=== PATIENT | female | born 1940 | race Caucasian/White ===

== ENCOUNTER → 2024-06-15 18:24 | Outpatient (REF) | payer OTHER, SELFPAY | LOC: MRI 18:24 | PROVIDERS: ATTENDING PHYSICIAN Nurse Practitioner; FAMILY PHYSICIAN Internal Medicine | DX: K86.2 Cyst of pancreas (principal) | CPT/HCPCS: 74183 ==

== ENCOUNTER → 2024-06-24 06:45 | Day surgery (SDC) | payer OTHER, SELFPAY ==
[2024-06-24 10:59] LABS: Glucose - Point of Care 121 mg/dl (70-99)
== END ==
LOC: GI 06:45
PROVIDERS: ATTENDING PHYSICIAN Internal Medicine Gastroenterology
DX: K57.30 Diverticulosis of large intestine without perforation or abscess without bleeding (principal); K64.8 Other hemorrhoids; R19.4 Change in bowel habit
CPT/HCPCS: 45380; 88305; 82962

== ENCOUNTER → 2024-07-07 13:33 | Outpatient (REF) | payer OTHER, SELFPAY | LOC: HWRAD 13:33 | PROVIDERS: ATTENDING PHYSICIAN Orthopaedic Surgery; FAMILY PHYSICIAN Internal Medicine | DX: M48.061 Spinal stenosis, lumbar region without neurogenic claudication (principal); M51.36 Other intervertebral disc degeneration, lumbar region; M41.50 Other secondary scoliosis, site unspecified | CPT/HCPCS: 72131 ==

== ENCOUNTER → 2024-07-29 15:30 | Outpatient (REF) | payer OTHER, SELFPAY | LOC: PAVMRI 15:30 | PROVIDERS: ATTENDING PHYSICIAN Orthopaedic Surgery; FAMILY PHYSICIAN Internal Medicine | DX: M48.061 Spinal stenosis, lumbar region without neurogenic claudication (principal); M51.36 Other intervertebral disc degeneration, lumbar region; M41.50 Other secondary scoliosis, site unspecified | CPT/HCPCS: 72148 ==

== ENCOUNTER → 2024-10-06 20:30 | Outpatient (REF) | payer OTHER, SELFPAY | LOC: MRI 3T 20:30 | PROVIDERS: ATTENDING PHYSICIAN Neurological Surgery; FAMILY PHYSICIAN Internal Medicine | DX: M51.369 Other intervertebral disc degeneration, lumbar region without mention of lumbar back pain or lower extremity pain (principal); M41.50 Other secondary scoliosis, site unspecified | CPT/HCPCS: 72146 ==

== ENCOUNTER → 2025-01-24 14:04 | Outpatient (REF) | payer OTHER, SELFPAY | LOC: HWRCS 14:04 | PROVIDERS: ATTENDING PHYSICIAN Internal Medicine Cardiovascular Disease; FAMILY PHYSICIAN Internal Medicine | DX: R06.09 Other forms of dyspnea (principal) | CPT/HCPCS: 93306 ==

== ENCOUNTER → 2025-03-27 11:16 | Outpatient (REF) | payer OTHER, SELFPAY | LOC: HWRCS 11:16 | PROVIDERS: ATTENDING PHYSICIAN Internal Medicine Cardiovascular Disease; FAMILY PHYSICIAN Internal Medicine | DX: R06.09 Other forms of dyspnea (principal) | CPT/HCPCS: 78452; 93017; A9500; J2785 ==